=== PATIENT | male | born 1955 | race Caucasian/White ===

== ENCOUNTER 2022-01-31 10:05 | Day surgery (SDC) | payer MEDICARE ==
[2022-01-29 15:54] VITALS: BMI 23.7
--- NOTE | 2022-01-31 07:50 | P.GSHP ---
History of Present Illness H&P Date: 01/31/22 CHIEF COMPLAINT: Colon screen HISTORY OF PRESENT ILLNESS: The patient is a 67-year-old male who presents for colon screen. Lower endoscopy was offered for further evaluation and management. PAST MEDICAL HISTORY: Please see list. PAST SURGICAL HISTORY: Please see list. MEDICATIONS: Please see list. ALLERGIES: Please see list. SOCIAL HISTORY: No illicit drug use FAMILY HISTORY: No reports of Crohn disease or ulcerative colitis. REVIEW OF ORGAN SYSTEMS: CONSTITUTIONAL: No reports of fevers or chills. PHYSICAL EXAM: VITAL SIGNS: Stable GENERAL: Well-developed pleasant in no acute distress. HEENT: No scleral icterus. Extraocular movements grossly intact. Moist buccal mucosa. NECK: Supple without lymphadenopathy. CHEST: Unlabored respirations. Equal bilateral excursions. CARDIOVASCULAR: Regular rate and rhythm. Distal 2+ pulses. ABDOMEN: Soft, nontender, nondistended. MUSCULOSKELETAL: No clubbing, cyanosis, or edema. ASSESSMENT: 1. Colon screen. PLAN: 1. Recommend proceeding with a lower endoscopy Past Medical History Past Medical History: Hypertension Additional Past Medical History / Comment(s): CONSTIPATION -OCCASIONAL BLOOD IN STOOL., HEMORRHOIDS. History of Any Multi-Drug Resistant Organisms: None Reported Past Surgical History: Tonsillectomy Additional Past Surgical History / Comment(s): DISLOCATED SHOULDER SURGERY, TONSILLS X3 (CHILD), TUBES IN EARS (CHILD). Past Anesthesia/Blood Transfusion Reactions: Postoperative Nausea & Vomiting (PONV) Additional Past Anesthesia/Blood Transfusion Reaction / Comment(s): PONV WITH TONSILLS Past Psychological History: No Psychological Hx Reported Smoking Status: Current some day smoker Past Alcohol Use History: None Reported Additional Past Alcohol Use History / Comment(s): TRYING TO QUIT, HX OF OVER 1PPD, STARTED SMOKING AGE 18. NO ALCOHOL 10 YEARS. Past Drug Use History: None Reported - Past Family History Mother Family Medical History: No Reported History Medications and Allergies Home Medications Medication Instructions Recorded Confirmed Type Acetaminophen [Tylenol Extra 500 mg PO DIRECTED PRN 01/29/22 01/29/22 History Strength] Ascorbic Acid [Vitamin C] 500 mg PO DAILY 01/29/22 01/29/22 History Aspirin [Adult Low Dose Aspirin EC] 81 mg PO DAILY 01/29/22 01/29/22 History Enalapril Maleate [Vasotec] 10 mg PO DAILY 01/29/22 01/29/22 History Melatonin 5 mg PO DAILY 01/29/22 01/29/22 History Metoprolol Tartrate [Lopressor] 25 mg PO BID 01/29/22 01/29/22 History Vitamin B Complex 1 each PO DAILY 01/29/22 01/29/22 History hydroCHLOROthiazide 25 mg PO BID 01/29/22 01/29/22 History Allergies Allergy/AdvReac Type Severity Reaction Status Date / Time Penicillins Allergy Unknown Rash/Hives Verified 01/29/22 15:28
[~2022-01-31 10:05] MED LIST: LACTATED RINGERS 1,000 ML IV SCH; LIDOCAINE 1% (10MG/ML) FOR IV START INTRADERMA PRN
[2022-01-31 10:36] VITALS: RESP 16; TEMP 96.9
[2022-01-31] MEDS ORDERED: PROPOFOL 10 MG/ML 20 ML VIAL IV ONE (10:44)
[2022-01-31] MEDS ORDERED: LIDOCAINE 1% INJ 10MG/ML (20 ML MDV) ONE (10:44)
--- NOTE | 2022-01-31 11:41 | P.PCN ---
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 SURGEON: Ewa Perkins MD. ANESTHESIA: MAC. INDICATIONS: The patient is a 67-year-old female who presents with rectal bleeding. Last colonoscopy 5 years ago. Benefits and risks were described and informed consent was obtained. DESCRIPTION OF PROCEDURE: The patient had undergone Sutab prep. The patient had been brought into the operating room and laid in the left lateral decubitus position. After adequate intravenous sedation, the rectum was examined with 2% lidocaine jelly. Anal skin tags with acute and chronic anal fissure 1 cm identified. The rectal tone was mildly hypertensive. No lesions were palpated in the rectal vault. An Ol ympus colonoscope was advanced until the cecum, ileocecal valve and appendiceal orifice were clearly viewed. The prep was good. Scattered diverticulosis was encountered. No colonic polyps were found. No evidence of focal colitis was found. Retroflexion of the scope demonstrated grade 1 internal hemorrhoids without active bleeding or inflammation. The colon was desufflated. The patient had tolerated the procedure well. Withdrawal time was over 6 minutes. FINDINGS: Aronchick preparation quality scale 2 (1-5) Internal hemorrhoids, grade 1 Anal skin tags with acute and chronic anal fissure 1 cm identified. No arteriovenous malformations. No adenomatous polyps. No focal colitis. Sigmoid diverticulosis RECOMMENDATIONS: Lower endoscopy in 5 years, 2026 Plan - Discharge Summary New Discharge Prescriptions: New Lidocaine [Lidocaine 5% Rectal Cream] 1 applic RECTAL DAILY #30 gm Continue hydroCHLOROthiazide 25 mg PO BID Ascorbic Acid [Vitamin C] 500 mg PO DAILY Vitamin B Complex 1 each PO DAILY Melatonin 5 mg PO DAILY Metoprolol Tartrate [Lopressor] 25 mg PO BID Enalapril Maleate [Vasotec] 10 mg PO DAILY Aspirin [Adult Low Dose Aspirin EC] 81 mg PO DAILY Acetaminophen [Tylenol Extra Strength] 500 mg PO DIRECTED PRN PRN Reason: Pain Discharge Medication List Acetaminophen [Tylenol Extra Strength] 500 mg PO DIRECTED PRN 01/29/22 [History] Ascorbic Acid [Vitamin C] 500 mg PO DAILY 01/29/22 [History] Aspirin [Adult Low Dose Aspirin EC] 81 mg PO DAILY 01/29/22 [History] Enalapril Maleate [Vasotec] 10 mg PO DAILY 01/29/22 [History] Melatonin 5 mg PO DAILY 01/29/22 [History] Metoprolol Tartrate [Lopressor] 25 mg PO BID 01/29/22 [History] Vitamin B Complex 1 each PO DAILY 01/29/22 [History] hydroCHLOROthiazide 25 mg PO BID 01/29/22 [History] Lidocaine [Lidocaine 5% Rectal Cream] 1 applic RECTAL DAILY #30 gm 01/31/22 [Rx] Follow up Appointment(s)/Referral(s): Ewa Perkins MD [STAFF PHYSICIAN] - 02/14/22 Patient Instructions/Handouts: *Surgery [facility] - Anesthesia Discharge Instructions, A-fib (Atrial Fibrillation) (DC), Diverticulosis (DC), Anal Fissure (DC), Diverticulosis Diet (GEN), Diverticulosis (ED), Sitz Bath (DC) Activity/Diet/Wound Care/Special Instructions: Use ointment up to 4x daily for pain relief. Sitz bath twice to three times daily Discharge Disposition: HOME SELF-CARE
--- NOTE | 2022-01-31 11:43 | P.PN ---
Progress Note - Text Progress Note Date: 01/31/22 Notified from postanesthesia care unit patient went into atrial fibrillation. Cardiology consultation obtained per anesthesia. Patient to start blood thinners as a result. Patient cleared to start blood thinners due to no acute bleeding.
[2022-01-31 11:46] VITALS: BP 105/55; PULSE 75
--- NOTE | 2022-01-31 12:20 | P.CRDCN ---
History of Present Illness History of present illness: HISTORY OF PRESENTING ILLNESS This is a pleasant 67-year-old male past medical history significant for hypertension, chronic nicotine dependence. He does not follow with a trade specialist. We have been asked to see in consultation for new onset atrial fibrillation. Patient to the hospital for a planned colonoscopy. Patient was in the post anesthesia care unit and was noted to be a irregular heart rhythm. EKG was performed which revealed atrial fibrillation, heart rate 97, no acute ST or T-wave abnormalities. Patient seen in recovery area. He denies any chest pain, palpitations, lightheadedness, dizziness, shortness of breath. He denies any history of atrial fibrillation, coronary artery disease, [place], stroke, diabetes, or dyslipidemia. He denies any history of cardiac disease. Denies history of GI bleed. He is a current every day smoker smoking 1PPD. He denies alcohol use or illicit drug use. He only had colonoscopy performed today with no biopsies and no bleeding noted DIAGNOSTICS EKG reveals atrial fibrillation, heart rate 97, no acute ST or T-wave abnormalities No labs, prior EKG or prior workup to review in chart Current cardiac medications include hydrochlorothiazide 25 mg twice a day, metoprolol titrate 25 mg twice a day, enalapril 10 mg daily REVIEW OF SYSTEMS At the time of my exam: CONSTITUTIONAL: Denies fever or chills. CARDIOVASCULAR: Denies chest pain, shortness of breath, orthopnea, PND or palpitations. RESPIRATORY: Denies cough. GASTROINTESTINAL: Denies abdominal pain, diarrhea, constipation, nausea or vomiting. MUSCULOSKELETAL: Denies myalgias. NEUROLOGIC: Denies numbness, tingling, headacbe or weakness. ENDOCRINE: Denies fatigue, weight change, polydipsia or polyurina. GENITOURINARY: Denies burning, hematuria or urgency with micturation. HEMATOLOGIC: Denies history of anemia or bleeding. PHYSICAL EXAMINATION Blood pressure 105/55, heart rate 75, afebrile, saturations 100% on 3 L nasal cannula CONSTITUTIONAL: No apparent distress. HEENT: Head is normocephalic. Pupils are equal, round. Sclerae anicteric. Mucous membranes of the mouth are moist. No JVD. No carotid bruit. CHEST EXAMINATION: Lungs are clear to auscultation. No chest wall tenderness is noted on palpation or with deep breathing. HEART EXAMINATION: Irregular rate and rhythm. S1, S2 heard. No murmurs, gallops or rub. ABDOMEN: Soft, nontender. Positive bowel sounds. EXTREMITIES: 2+ peripheral pulses, no lower extremity edema and no calf tenderness. NEUROLOGIC EXAMINATION: Patient is awake, alert and oriented x3. ASSESSMENT Paroxysmal atrial fibrillation, rates are controlled [id number] score 2 History of hypertension Chronic nicotine dependence Status post colonoscopy today 01/31/2022 PLAN Patient requesting to be discharged today. He is hemodynamically stable, his heart rates are controlled, he is asymptomatic and not in heart failure on exam. Ok per Surgery to start anticoagulation. Risks and benefits of stroke and anticoagulation was discused with the patient We will start the patient on Eliquis 5mg BID. Consult case management for coverage assistance and assist patient with 1 month free coverage. Continue patient's home metoprolol tartrate, enalapril and hydrochlorothiazide Ok to discharge today, Patient to follow up with Dr. Sarkar in the outpatient office for further management of atrial fibrillation on 02/04/2022 at 3:30PM Nurse practitioner note has been reviewed by physician. Signing provider agrees with the documented findings, assessment, and plan of care. Past Medical History Past Medical History: Hypertension Additional Past Medical History / Comment(s): CONSTIPATION -OCCASIONAL BLOOD IN STOOL., HEMORRHOIDS. History of Any Multi-Drug Resistant Organisms: None Reported Past Surgical History: Tonsillectomy Additional Past Surgical History / Comment(s): DISLOCATED SHOULDER SURGERY, TONSILLS X3 (CHILD), TUBES IN EARS (CHILD). Past Anesthesia/Blood Transfusion Reactions: Postoperative Nausea & Vomiting (PONV) Additional Past Anesthesia/Blood Transfusion Reaction / Comment(s): PONV WITH TONSILLS Past Psychological History: No Psychological Hx Reported Smoking Status: Current some day smoker Past Alcohol Use History: None Reported Additional Past Alcohol Use History / Comment(s): TRYING TO QUIT, HX OF OVER 1PPD, STARTED SMOKING AGE 18. NO ALCOHOL 10 YEARS. Past Drug Use History: None Reported - Past Family History Mother Family Medical History: No Reported History Medications and Allergies Home Medications Medication Instructions Recorded Confirmed Type Acetaminophen [Tylenol Extra 500 mg PO DIRECTED PRN 01/29/22 01/31/22 History Strength] Ascorbic Acid [Vitamin C] 500 mg PO DAILY 01/29/22 01/31/22 History Enalapril Maleate [Vasotec] 10 mg PO DAILY 01/29/22 01/31/22 History Melatonin 5 mg PO DAILY 01/29/22 01/31/22 History Metoprolol Tartrate [Lopressor] 25 mg PO BID 01/29/22 01/31/22 History Vitamin B Complex 1 each PO DAILY 01/29/22 01/31/22 History hydroCHLOROthiazide 25 mg PO BID 01/29/22 01/31/22 History Apixaban [Eliquis] 5 mg PO BID 30 Days #60 tab 01/31/22 Rx Lidocaine [Lidocaine 5% Rectal 1 applic RECTAL DAILY #30 gm 01/31/22 Rx Cream] Allergies Allergy/AdvReac Type Severity Reaction Status Date / Time Penicillins Allergy Unknown Rash/Hives Verified 01/31/22 10:35 Physical Exam Vitals: Vital Signs Temp Pulse Resp BP Pulse Ox 01/31/22 11:22 75 16 105/55 94 L 01/31/22 11:07 73 16 103/55 100 01/31/22 10:30 96.9 F L 58 L 16 129/83 97 Intake and Output 01/30/22 01/31/22 01/31/22 22:59 06:59 14:59 Intake Total 400 Balance 400 Intake: IV 400 Other: Weight 82.3 kg Results Current Medications Generic Name Dose Route Start Last Admin Trade Name Noman PRN Reason Stop Dose Admin Lactated Ringer's 1,000 mls @ 20 mls/hr 01/31/22 05:33 01/31/22 10:40 Lactated Ringers IV 03/02/22 05:34 400 mls .Q24H TRUDY Administration Lidocaine HCl 0.1 ml 01/31/22 05:33 Lidocaine 1% (10mg/Ml) For Iv Start INTRADERMA 03/02/22 05:34 PER PROTOCOL PRN IV Start Intake and Output 01/30/22 01/31/22 01/31/22 22:59 06:59 14:59 Intake Total 400 Balance 400 Intake: IV 400 Other: Weight 82.3 kg Patient Weight 02/01/22 06:59 Weight 82.3 kg
== END 2022-01-31 12:36 | disposition home or self-care (01) ==
LOC: ORWHC2ENDO 10:05 → EDBD 11:25 → ORWHC2ENDO 12:36
PROVIDERS: ATTEND Surgery Plastic and Reconstructive Surgery
DX: K62.89 Other specified diseases of anus and rectum (principal); K60.1 Chronic anal fissure; K57.30 Diverticulosis of large intestine without perforation or abscess without bleeding; K64.4 Residual hemorrhoidal skin tags; K64.0 First degree hemorrhoids; I48.0 Paroxysmal atrial fibrillation; I10 Essential (primary) hypertension; Z98.890 Other specified postprocedural states; F17.210 Nicotine dependence, cigarettes, uncomplicated; Z79.82 Long term (current) use of aspirin; Z79.899 Other long term (current) drug therapy; Z88.0 Allergy status to penicillin
CPT/HCPCS: 45378; J2001; J2704